=== PATIENT | male | born 2000 | race Two or more races ===

== ENCOUNTER 2024-04-28 09:25 | Emergency (ER) | payer OTHER, BC ==
[2024-04-28 09:35] VITALS: BP 112/64; PULSE 80; RESP 16; TEMP 98
--- NOTE | 2024-04-28 11:38 | ED ---
Chest Pain HPI - General Chief Complaint: Chest Pain Stated Complaint: Chest Pain Time Seen by Provider: 04/28/24 11:36 Source: patient, RN notes reviewed Mode of arrival: wheelchair Limitations: no limitations - History of Present Illness Initial Comments: This is a 24-year-old male who presents to the emergency department for chest pain. This has been occurring intermittently for the last month and states that it typically occurs when he wakes up first thing in the morning. Today, the pain occurred later on after getting out of the shower and lasted longer than it typically does. Denies any history of cardiac issues. The pain is described as being in the lower chest/epigastric region. Denies any associated shortness of breath. He does occasionally have radiation of pain into the back. His mother states that there is a strong family history of gallbladder problems. MD Complaint: chest pain - Related Data Home Medications Medication Instructions Recorded Confirmed Albuterol Sulfate [Ventolin HFA] 1 - 2 puff INHALATION RT-Q6H PRN 04/28/24 04/28/24 Breo (Unknown Dose) 1 puff INHALATION DIRECTED 04/28/24 04/28/24 Allergies Allergy/AdvReac Type Severity Reaction Status Date / Time latex Allergy Rash/Hives Verified 04/28/24 13:14 Review of Systems ROS Statement: Those systems with pertinent positive or pertinent negative responses have been documented in the HPI. ROS Other: All systems not noted in ROS Statement are negative. Past Medical History Past Medical History: Asthma History of Any Multi-Drug Resistant Organisms: None Reported Past Surgical History: No Surgical Hx Reported Past Psychological History: ADD/ADHD Smoking Status: Never smoker Past Alcohol Use History: Rare Past Drug Use History: None Reported General Exam Limitations: no limitations General appearance: alert, in no apparent distress Head exam: Present: atraumatic, normocephalic, normal inspection Respiratory exam: Present: normal lung sounds bilaterally. Absent: respiratory distress, wheezes, rales, rhonchi, stridor Cardiovascular Exam: Present: regular rate, normal rhythm, normal heart sounds. Absent: systolic murmur, diastolic murmur, rubs, gallop, clicks GI/Abdominal exam: Present: soft, normal bowel sounds. Absent: distended, tenderness, guarding, rebound, rigid Neurological exam: Present: alert, oriented X3, CN II-XII intact Psychiatric exam: Present: normal affect, normal mood Skin exam: Present: warm, dry, intact, normal color. Absent: rash Course Vital Signs 04/28/24 09:32 Temperature 98.0 F Pulse Rate 80 Respiratory 16 Rate Blood Pressure 112/64 O2 Sat by Pulse 99 Oximetry Chest Pain MDM - MDM This is a 24 year old male who presents to the emergency department for chest pain. Was pt. sent in by a medical professional or institution? @ -No Did you speak to anyone other than the patient for history? @ -His mother provided the information about the family history of gallbladder problems. Did you review nursing and triage notes? @ -Yes, and I agree, it is accurate with regards to the patient's symptoms. Were old charts reviewed? @ -No Differential Diagnosis? @ -Differential Chest Pain: Stable Angina, Unstable Angina, STEMI, NSTEMI Aortic Dissection, Pneumothorax, Musculoskeletal, Esophageal Spasm GERD, Cholecystitis, Pancreatitis, Zoster, this is not meant to be an all-inclusive list. EKG interpreted by me (3pts min.)? @ -EKG interpreted by me demonstrating the following: Sinus rhythm. Ventricular rate 60 bpm, [place] interval 149 ms, QRS duration 102 ms, QTc 403 ms. X-rays interpreted by me (1pt min.)? @ -Chest x-ray obtained, my interpretation identifies no localized consolidations or infiltrates. CT interpreted by me (1pt min.)? @ -Not obtained U/S interpreted by me (1pt. min.)? @ -Gallbladder ultrasound obtained. My interpretation identifies cholelithiasis What testing was considered but not performed? (CT, X-rays, U/S, labs)? Why? @ -None What meds were considered but not given? Why? @ -None Did you discuss the management of the patient with other professionals? @ -No Did you reconcile home meds? @ -No Was smoking cessation discussed for >3mins.? @ -No Was critical care preformed (if so, how long)? @ -No Were there social determinants of health that impacted care today? How? (Homelessness, low income, unemployed, alcoholism, drug addiction, transportation, low edu. Level, literacy, decrease access to med. care, usp, rehab)? @ -No Was there de-escalation of care discussed even if they declined? (Discuss DNR or withdrawal of care, Hospice)? @ -No What co-morbidities impacted this encounter? (DM, HTN, Smoking, COPD, CAD, Cancer, CVA, Hep., AIDS, mental health diagnosis, sleep apnea, morbid obesity)? @ -Asthma Was patient admitted / discharged? @ -Discharged. Lab work unremarkable. Chest x-ray reveals no acute process. Gallbladder ultrasound obtained demonstrating cholelithiasis without other acute process. Advised that symptoms may be related to the gallstones. He remained asymptomatic/pain-free while in the emergency department. Information for general surgery follow-up provided, he is advised to contact them for follow-up appointment. Advised following a bland and low-fat diet for the meantime to reduce the risk of symptom recurrence. Patient discharged home in stable condition. Undiagnosed new problem with uncertain prognosis? @ -None Drug Therapy requiring intensive monitoring for toxicity (Heparin, Nitro, Insulin, Cardizem)? @ -None Were any procedures done? @ -None Diagnosis/symptom? @ -Cholelithiasis, biliary colic Acute, or Chronic, or Acute on Chronic? @ -Acute Uncomplicated (without systemic symptoms) or Complicated (systemic symptoms)? @ -Uncomplicated Side effects of treatment? @ -None Exacerbation, Progression, or Severe Exacerbation] @ -Not applicable Poses a threat to life or bodily function? @ -No Return precautions reviewed in depth, the patient is instructed to return to the emergency department with any new, worsening, or concerning symptoms. Patient verbalized understanding. This case was discussed in detail with the attending ED physician, Dr. Magallanes. Presentation, findings, and treatment plan discussed in detail as well. Disposition Clinical Impression: Cholelithiases, Biliary colic Disposition: HOME SELF-CARE Instructions (If sedation given, give patient instructions): Biliary Colic (ED), Gallstones (ED) Additional Instructions: Return to the emergency department with any new, worsening, or concerning symptoms. Try to follow a bland and low-fat diet for the meantime to reduce the risk of symptom recurrence. Contact the general surgery office listed below as soon as you are discharged. Let them know that you were seen in the emergency department and diagnosed with gallstones. They will schedule you for a follow- up appointment. If the pain returns, you can try taking ibuprofen and Tylenol. Is patient prescribed a controlled substance at d/c from ED?: No Referrals: None,Stated [Primary Care Provider] - 1-2 days Eddie Cobos MD [STAFF PHYSICIAN] - 1-2 days Time of Disposition: 13:19
--- NOTE | 2024-04-28 12:34 | XR ---
EXAMINATION TYPE: XR chest 2V DATE OF EXAM: 04/28/2024 COMPARISON: None INDICATION: Chest pain TECHNIQUE: Frontal and lateral views of the chest are obtained. FINDINGS: The heart size is normal. The pulmonary vasculature is normal. The lungs are clear. IMPRESSION: 1. No acute pulmonary process.
[2024-04-28 12:58] LABS: Basophils # (A) 0.1 k/uL (0-0.2); Basophils % (A) 1 %; Eosinophils # (A) 0.5 k/uL (0-0.7); Eosinophils % (A) 8 %; HCT 48.7 % (39.0-53.0); HGB 16.3 gm/dL (13.0-17.5); Lymphocytes # (A) 1.8 k/uL (1.0-4.8); Lymphocytes % (A) 30 %; MCH 30.7 pg (25.0-35.0); MCHC 33.4 g/dL (31.0-37.0); MCV 92.1 fL (80.0-100.0); Monocytes # (A) 0.4 k/uL (0-1.0); Monocytes % (A) 7 %; Neutrophils % (A) 50 %; Platelet Count 307 k/uL (150-450); RBC 5.29 m/uL (4.30-5.90); RDW 13.1 % (11.5-15.5)
[2024-04-28 13:03] LABS: ALT 44 U/L (4-49); African American GFR (CKD) >90 (>60 ml/min/1.73 sqM); Albumin 4.6 g/dL (3.5-5.0); Anion Gap 6 mmol/L; Blood Urea Nitrogen 10 mg/dL (9-20); Calcium 9.6 mg/dL (8.4-10.2); Carbon Dioxide 25 mmol/L (22-30); Chloride 108 mmol/L (98-107); Glucose 103 mg/dL (74-99); Lipase 73 U/L (23-300); Non-African American GFR(CKD) >90 (>60 ml/min/1.73 sqM); Sodium 139 mmol/L (137-145); Total Bilirubin 1.2 mg/dL (0.2-1.3); Total Protein 7.2 g/dL (6.3-8.2)
[2024-04-28 13:06] LABS: INR 1.1 (<1.2); Partial Thromboplastin Time 26.7 sec (22.0-30.0); Prothrombin Time 11.4 sec (10.0-12.5)
[2024-04-28 13:11] LABS: AST 40 U/L (17-59); Alkaline Phosphatase 57 U/L (38-126); Potassium 4.2 mmol/L (3.5-5.1)
--- NOTE | 2024-04-28 13:12 | US ---
EXAMINATION TYPE: US gallbladder DATE OF EXAM: 04/28/2024 COMPARISON: NONE CLINICAL INDICATION: Male, 24 years old with history of Epigastric pain; Intermittent epigastric pain x 1 month, worse today. Family history of gallstones TECHNIQUE: Multiple sonographic images of the right upper quadrant are obtained. FINDINGS: EXAM MEASUREMENTS: Liver Length: 12.3 cm Gallbladder Wall: 0.3 cm CBD: 0.4 cm Right Kidney: 10.4 x 4.6 x 4.8 cm POWDER COAT PAINTER NOTES: Pancreas: Tail obscured by overlying bowel gas Liver: wnl Gallbladder: Two large stones seen; One in the neck and one fundal Evidence for sonographic Schroeder's sign: No CBD: wnl Right Kidney: ? Stone vs calcification within upper pole IMPRESSION: 1. Cholelithiasis. 2. Possible nonobstructing renal stone superior pole right kidney
== END 2024-04-28 13:30 | disposition home or self-care (01) ==
LOC: EC 09:25
DX: K80.70 Calculus of gallbladder and bile duct without cholecystitis without obstruction (principal); Z91.040 Latex allergy status
CPT/HCPCS: 36415; 71046; 76705; 80053; 83690; 83735; 84484; 85025; 85610; 85730; 93005; 99285

== ENCOUNTER 2024-05-05 18:59 | Emergency (ER) | payer BC, OTHER ==
[2024-05-05 19:23] LABS: Basophils # (A) 0.1 k/uL (0-0.2); Basophils % (A) 1 %; Eosinophils # (A) 0.7 k/uL (0-0.7); Eosinophils % (A) 9 %; HGB 16.3 gm/dL (13.0-17.5); Lymphocytes # (A) 2.3 k/uL (1.0-4.8); Lymphocytes % (A) 29 %; MCH 30.5 pg (25.0-35.0); MCHC 33.2 g/dL (31.0-37.0); MCV 91.8 fL (80.0-100.0); Mean Platelet Volume 8.2; Monocytes # (A) 0.6 k/uL (0-1.0); Monocytes % (A) 8 %; Neutrophils # (A) 4.1 k/uL (1.3-7.7); Neutrophils % (A) 51 %; Platelet Count 304 k/uL (150-450); RBC 5.33 m/uL (4.30-5.90); RDW 13.4 % (11.5-15.5)
[2024-05-05 19:40] LABS: Prothrombin Time 11.3 sec (10.0-12.5)
--- NOTE | 2024-05-05 19:58 | ED ---
Chest Pain HPI - General Chief Complaint: Chest Pain Stated Complaint: Abdominal Pain Time Seen by Provider: 05/05/24 19:20 Source: patient Mode of arrival: ambulatory Limitations: no limitations - History of Present Illness Initial Comments: 24-year-old male presenting with chief complaint of chest pain. Patient was here 1 week ago and was diagnosed with gallstones, pain is in the same location. Today he is having lower chest/epigastric pain. Pain started around noon, patient states that he tried waiting it out but the pain has been persistent ever since. States that it feels like a squeezing pain. Denies any shortness of breath. No lower extremity swelling. No recent surgery, recent travel. Pain is worse when the patient is hungry. - Related Data Home Medications Medication Instructions Recorded Confirmed Albuterol Sulfate [Ventolin HFA] 1 - 2 puff INHALATION RT-Q6H PRN 04/28/24 04/28/24 Breo (Unknown Dose) 1 puff INHALATION DIRECTED 04/28/24 04/28/24 Allergies Allergy/AdvReac Type Severity Reaction Status Date / Time latex Allergy Rash/Hives Verified 05/05/24 19:02 Review of Systems ROS Statement: Those systems with pertinent positive or pertinent negative responses have been documented in the HPI. ROS Other: All systems not noted in ROS Statement are negative. EKG Findings - EKG Comments: EKG Findings:: EKG shows sinus rhythm with sinus arrhythmia. Ventricular rate 85. DC interval 148. QRS 98. QT 392. QTc 403. Past Medical History Past Medical History: Asthma History of Any Multi-Drug Resistant Organisms: None Reported Past Surgical History: No Surgical Hx Reported Past Psychological History: ADD/ADHD Smoking Status: Never smoker Past Alcohol Use History: Rare Past Drug Use History: None Reported General Exam Limitations: no limitations General appearance: alert, in no apparent distress Head exam: Present: atraumatic, normocephalic Eye exam: Present: normal appearance, EOMI Neck exam: Present: normal inspection. Absent: meningismus Respiratory exam: Present: normal lung sounds bilaterally. Absent: respiratory distress, wheezes, rales, rhonchi, stridor Cardiovascular Exam: Present: regular rate, normal rhythm, normal heart sounds. Absent: systolic murmur, diastolic murmur, rubs, gallop, clicks GI/Abdominal exam: Present: soft. Absent: distended, tenderness, guarding, rebound, rigid Neurological exam: Present: alert, oriented X3 Psychiatric exam: Present: normal affect, normal mood Skin exam: Present: warm, dry Course Vital Signs 05/05/24 05/05/24 05/05/24 19:00 19:41 21:00 Temperature 98.5 F Pulse Rate 70 73 73 Respiratory 20 18 18 Rate Blood Pressure 126/83 117/81 120/82 O2 Sat by Pulse 98 99 99 Oximetry 05/05/24 05/05/24 22:00 23:05 Temperature 98.9 F Pulse Rate 58 L 58 L Respiratory 18 18 Rate Blood Pressure 122/86 118/87 O2 Sat by Pulse 98 100 Oximetry Chest Pain MDM - MDM Was pt. sent in by a medical professional or institution (, PA, FURNITURE DUSTER, urgent care, hospital, or intermediate...) When possible be specific @ -No Did you speak to anyone other than the patient for history (EMS, parent, family, police, friend...)? What history was obtained from this source @ -No Did you review nursing and triage notes (agree or disagree)? Why? @ -I reviewed and agree with nursing and triage notes Were old charts reviewed (outside hosp., previous admission, EMS record, old EKG, old radiological studies, urgent care reports/EKG's, intermediate records)? Report findings @ -No old charts were reviewed Differential Diagnosis (chest pain, altered mental status, abdominal pain women, abdominal pain men, vaginal bleeding, weakness, fever, dyspnea, syncope, headache, dizziness, GI bleed, back pain, seizure, CVA, palpatations, mental health, musculoskeletal)? @ -MDM Differential Chest Pain: Stable Angina, Unstable Angina, STEMI, NSTEMI Aortic Dissection, Pneumothorax, Musculoskeletal, Esophageal Spasm GERD, Cholecystitis, Pancreatitis, Zoster This is not meant to be an all-inclusive list. EKG interpreted by me (3pts min.). @ -As above X-rays interpreted by me (1pt min.). @ -Chest x-ray shows no acute cardiopulmonary disease/process CT interpreted by me (1pt min.). @ -None done U/S interpreted by me (1pt. min.). @ -Ultrasound shows cholelithiasis redemonstrated with no sonographic evidence for acute cholecystitis. Redemonstrated right kidney echogenic focus likely representing nonobstructing right renal calculus What testing was considered but not performed or refused? (CT, X-rays, U/S, labs)? Why? @ -None What meds were considered but not given or refused? Why? @ -None Did you discuss the management of the patient with other professionals (professionals i.e. , PA, FURNITURE DUSTER, lab, RT, psych nurse, psychologist social, setter helper, teacher, morale officer, field nurse case manager)? Give summary @ -No Was smoking cessation discussed for >3mins.? @ -No Was critical care preformed (if so, how long)? @ -No Were there social determinants of health that impacted care today? How? (Homelessness, low income, unemployed, alcoholism, drug addiction, transportation, low edu. Level, literacy, decrease access to med. care, intermediate, rehab)? @ -No Was there de-escalation of care discussed even if they declined (Discuss DNR or withdrawal of care, Hospice)? DNR status @ -No What co-morbidities impacted this encounter? (DM, HTN, Smoking, COPD, CAD, Cancer, CVA, ARF, Chemo, Hep., AIDS, mental health diagnosis, sleep apnea, morbid obesity)? @ -None Was patient admitted / discharged? Hospital course, mention meds given and route, prescriptions, significant lab abnormalities, going to OR and other pertinent info. @ -24-year-old male presenting with chief complaint of epigastric and chest pain. He was diagnosed with gallstones 1 week ago. Lab work shows no leukocytosis or anemia. Negative troponin. Chest x-ray is negative. EKG shows sinus rhythm with sinus arrhythmia. Abdomen ultrasound shows cholelithiasis w ith no evidence of cholecystitis. Patient was given Pepcid and GI cocktail. On reassessment he reports improvement in his symptoms. He has an appointment scheduled with Dr. Cobos in 2 days. He will follow-up with general surgery. Follow-up with PCP. Report back to ER with any new or worsening symptoms. Discussed return parameters and answered all questions. Patient conveyed verbal understanding and agreed to the plan. I discussed this case in detail with my attending Dr. Casanova Undiagnosed new problem with uncertain prognosis? @ -No Drug Therapy requiring intensive monitoring for toxicity (Heparin, Nitro, Insulin, Cardizem)? @ -No Were any procedures done? @ -No Diagnosis/symptom? @ -Cholelithiasis Acute, or Chronic, or Acute on Chronic? @ -Acute Uncomplicated (without systemic symptoms) or Complicated (systemic symptoms)? @ -Uncomplicated Side effects of treatment? @ -No Exacerbation, Progression, or Severe Exacerbation? @ -No Poses a threat to life or bodily function? How? (Chest pain, [place], [place], pneumonia, PE, COPD, DKA, ARF, appy, cholecystitis, CVA, Diverticulitis, Homicidal, Suicidal, threat to staff... and all critical care pts) @ -Unlikely Disposition Clinical Impression: Epigastric pain, Gallstones Disposition: HOME SELF-CARE Condition: Good Instructions (If sedation given, give patient instructions): Gallstones (ED), Low Fat Diet (ED) Additional Instructions: Follow-up with PCP and surgeon. Report back to ER with any new or worsening symptoms. Is patient prescribed a controlled substance at d/c from ED?: No Referrals: Eddie Cobos MD [STAFF PHYSICIAN] - 1-2 days None,Stated [Primary Care Provider] - 1-2 days Time of Disposition: 22:26
[2024-05-05 20:04] LABS: ALT 37 U/L (4-49); AST 32 U/L (17-59); African American GFR (CKD) >90 (>60 ml/min/1.73 sqM); Albumin 4.8 g/dL (3.5-5.0); Alkaline Phosphatase 65 U/L (38-126); Anion Gap 10 mmol/L; Blood Urea Nitrogen 9 mg/dL (9-20); Calcium 9.4 mg/dL (8.4-10.2); Carbon Dioxide 24 mmol/L (22-30); Chloride 108 mmol/L (98-107); Glucose 88 mg/dL (74-99); Magnesium 1.9 mg/dL (1.6-2.3); Non-African American GFR(CKD) >90 (>60 ml/min/1.73 sqM); Potassium 3.8 mmol/L (3.5-5.1); Sodium 142 mmol/L (137-145); Total Bilirubin 0.6 mg/dL (0.2-1.3); Total Protein 7.3 g/dL (6.3-8.2)
[2024-05-05] MEDS: MAG HYDROX/AL HYDROX/SIMETH 30 ML, HYOSCYAMINE ELIXIR 10 ML, LIDOCAINE VISCOUS 2% 10 ML PO STA (20:24)
[2024-05-05] MEDS: FAMOTIDINE 20 MG/2 ML VIAL IV STA (20:24)
--- NOTE | 2024-05-05 20:25 | XR ---
EXAMINATION TYPE: XR chest 2V DATE OF EXAM: 05/05/2024 7:56 PM CLINICAL INDICATION:Male, 24 years old with history of Chest Pain; [facility] COMPARISON: Chest radiographs from 04/28/2024 TECHNIQUE: XR chest 2V Frontal view of the chest. FINDINGS: Lungs/Pleura: There is no evidence of pleural effusion, focal consolidation, or pneumothorax. Pulmonary vascularity: Unremarkable. Heart/mediastinum: Cardiomediastinal silhouette is unremarkable. Musculoskeletal: No acute osseous pathology. IMPRESSION: No acute cardiopulmonary disease/process.
[2024-05-05 21:12] VITALS: RESP 18
--- NOTE | 2024-05-05 21:22 | US ---
EXAMINATION TYPE: US abdomen limited DATE OF EXAM: 05/05/2024 COMPARISON: 04/28/2024 ultrasound CLINICAL INDICATION: Male, 24 years old with history of epigastric pain; Patient states epigastric pa in for 1 or 2 months. States that he got diagnosed with gallstones last week TECHNIQUE: Multiple sonographic images of the right upper quadrant are obtained. FINDINGS: EXAM MEASUREMENTS: Liver Length: 14.5 cm Gallbladder Wall: Upper limits of normal measuring 0.4 cm CBD: 0.5 cm Right Kidney: 9.6 x 5.9 x 5.2 cm WELFARE ADMINISTRATOR NOTES:Slightly limited due to overlying bowel gas and rib shadows Pancreas: Obscured by bowel gas Liver: wnl as best seen, portions obscured. Gallbladder: There is a 1.8 x 1.5 x 1.6cm gallstone seen within the neck, seen on prior exam. Previ ous fundal stone unable to visualize today. Wall appears slightly thickened. Evidence for sonographic Schroeder's sign: No CBD: wnl Right Kidney: There is a 1.3 x 0.9 x 0.8cm echogenic area seen within the mid /superior aspect of th e right kidney, ? stone vs other. Previously seen on prior exam. No sonographic evidence of hydronep hrosis. IMPRESSION: 1. Cholelithiasis redemonstrated with no sonographic evidence for acute cholecystitis. 2. Redemonstrated right kidney echogenic focus likely representing nonobstructive right renal calculu s.
[2024-05-05] MEDS: ACET/COD 300 MG/30 MG STARTER PACK 6 TAB BTL PO STA (23:03)
[2024-05-05 23:06] VITALS: BP 118/87; PULSE 58; TEMP 98.9
== END 2024-05-05 23:08 | disposition home or self-care (01) ==
LOC: EC 18:59
DX: K80.20 Calculus of gallbladder without cholecystitis without obstruction (principal); I49.8 Other specified cardiac arrhythmias; Z91.040 Latex allergy status
CPT/HCPCS: 36415; 93005; 80053; 83735; 84484; 85025; 85610; 85730; 71046; 76705; 99285; 96374; J3490

== ENCOUNTER 2024-05-27 07:30 | Day surgery (SDC) | payer BC, OTHER ==
[~2024-05-27 07:30] MED LIST: ACETAMINOPHEN TAB 500 MG TAB ONE; DEXAMETHASONE SOD PHOSPHATE 4 MG/ML 1 ML VIAL ONE; HEPARIN SODIUM,PORCINE 5,000 UNIT/ML 1 ML VIAL ONE; LACTATED RINGERS 1,000 ML BAG ONE; LIDOCAINE 1%-EPI 1:100,000 20 ML VIAL ONE; ONDANSETRON 4 MG/2 ML VIAL ONE
[2024-05-27] MEDS ORDERED: ROCURONIUM 10 MG/ML (5 ML VIAL) IV ONE (07:31)
[2024-05-27] MEDS ORDERED: GLYCOPYRROLATE 0.2 MG/ML 2 ML VIAL ONE (07:31)
[2024-05-27] MEDS ORDERED: ceFAZolin 1 GM/50 ML BAG (PMX) ONE (07:31)
[2024-05-27] MEDS ORDERED: NEOSTIGMINE 1 MG/ML 10 ML VIAL ONE (07:31)
[2024-05-27] MEDS ORDERED: PROPOFOL 10 MG/ML 20 ML VIAL IV ONE (07:31)
[2024-05-27] MEDS ORDERED: LIDOCAINE 1% INJ 10MG/ML (20 ML MDV) ONE (07:31)
[2024-05-27] MEDS ORDERED: SUCCINYLCHOLINE CHLORIDE 200 MG/10 ML VIAL IV ONE (07:31)
[2024-05-27] MEDS ORDERED: fentaNYL (PF) 50 MCG/ML 2 ML AMP ONE (07:31)
[2024-05-27] MEDS ORDERED: LIDOCAINE 4% LTA KIT (4 ML) TOPICAL ONE (07:31)
[2024-05-27] MEDS ORDERED: KETOROLAC 15 MG/ML 1 ML VIAL ONE (07:31)
[2024-05-27] MEDS ORDERED: MIDAZOLAM 2 MG/2 ML VIAL ONE (07:31)
--- NOTE | 2024-06-05 15:53 | OP ---
OPERATIVE REPORT DATE OF SERVICE : 05/27/2024 PROCEDURE: Laparoscopic cholecystectomy. PREOPERATIVE DIAGNOSIS: Acute cholecystitis. POSTOPERATIVE DIAGNOSIS: Acute cholecystitis. SALOON KEEPER: None. ANESTHESIA: General endotracheal tube anesthesia. ESTIMATED BLOOD LOSS: 5 mL. DESCRIPTION OF PROCEDURE: The patient was placed on the operating table in the supine position. He received general endotracheal tube anesthesia. His abdomen was prepped and draped in usual sterile fashion. The skin incision sites were anesthetized with 1% Xylocaine. The skin was incised in the supraumbilical position with an 11-blade. Using a Daisy clamp, the umbilicus was grasped, and then the Veress needle was positioned into the peritoneal cavity. After a positive drop test, the abdomen was insufflated. After insufflation, a 5 mm trocar was placed into peritoneal cavity, and then the laparoscope was placed into the abdominal cavity. Next, an 8 mm trocar was placed in the epigastric position and a 5 mm trocar was placed in the right lateral and right mid abdomen position. The patient was placed in the reverse Trendelenburg, [id number] position. The gallbladder was grasped and then traction the gallbladder cephalad lateral position. The cystic duct was seen. A critical view of safety was seen. The cystic duct was fully dissected, and the cystic duct was ligated with 2-0 Ethibond suture and tied at the base. Using Harmonic scissors, the cystic artery was then divided. The gallbladder was removed from the liver bed using electrocautery and the Harmonic scissors. The gallbladder was retracted through the epigastric port site. There was no bleeding seen. The abdomen was irrigated. Trocars were withdrawn. Skin was then closed with interrupted 3-0 Monocryl suture. Dermabond dressing was applied. The patient tolerated the procedure well. He was sent to recovery room in stable condition. MMODL / IJN: [id number] /
== END 2024-05-27 10:10 ==
LOC: OR 07:30
PROVIDERS: ATTEND Surgery
DX: K80.10 Calculus of gallbladder with chronic cholecystitis without obstruction
CPT/HCPCS: 88304

== ENCOUNTER 2024-05-27 18:37 | Emergency (ER) | payer BC, OTHER | END 2024-05-27 21:53 | disposition home or self-care (01) | LOC: EC 18:37 | DX: N99.820 Postprocedural hemorrhage of a genitourinary system organ or structure following a genitourinary system procedure (principal) | CPT/HCPCS: 99282 ==